=== PATIENT | female | born 1950 | race Caucasian/White ===

== ENCOUNTER 2018-03-07 15:15 | Emergency (ER) | payer MEDICARE ==
[~2018-03-07] VITALS: Ht 149.9 cm; Wt 53.6 kg
[~2018-03-07 15:15] MED LIST: AMIO200T40 PO; ASPI-41 PO; ATOR10TA PO; Hydrocodone Bit/Acetaminophen PO; Metoprolol Tartrate PO
[2018-03-07 15:42] VITALS: BP 130/55
[2018-03-07] MEDS ORDERED: INDO25CA18 PO (15:47)
[2018-03-07] MEDS ORDERED: METH4TAB3 PO (15:47)
== END 2018-03-07 15:58 | disposition home or self-care (01) ==
LOC: ER 15:16
DX: M1A.0721 Idiopathic chronic gout, left ankle and foot, with tophus (tophi) (principal); M1A.0711 Idiopathic chronic gout, right ankle and foot, with tophus (tophi); Z88.0 Allergy status to penicillin; Z88.6 Allergy status to analgesic agent; Z91.018 Allergy to other foods; Z79.899 Other long term (current) drug therapy
CPT/HCPCS: 99283

== ENCOUNTER 2018-03-22 11:58 | Emergency (ER) | payer MEDICARE, OTHER ==
[~2018-03-22] VITALS: Ht 149.9 cm; Wt 53.6 kg
[~2018-03-22 11:58] MED LIST changes: +INDO25CA18 PO; +METH4TAB3 PO
[2018-03-22 12:04] VITALS: BP 158/40
--- NOTE | 2018-03-22 13:03 | NUR ---
RELIEVING RN FOR LUNCH, PT IS RESTING QUIETLY ON GURSILVIA, DR VENTURA AT BEDSIDE TO PETEAL PT, PT REFERRED TO ER FROM [facility] TO R/O LEUKEMIA, PT ALSO C/O BILATERAL FOOT PAIN X1 YEAR "I HAVE GOUT", DR VENTURA GAVE VERBAL ORDER FOR PT TO EAT AFTER RECEIVING MED, PT IS GOING TO FOLLOW UP AT [facility] TOMORROW PER DR VENTURA
[2018-03-22] MEDS ORDERED: ondansetron 4mg rapidly disintigrating tab PO ONE (13:10)
== END 2018-03-22 13:24 | disposition home or self-care (01) ==
LOC: ER 12:00
DX: M10.9 Gout, unspecified (principal); D72.829 Elevated white blood cell count, unspecified; D75.81 Myelofibrosis; I10 Essential (primary) hypertension; F17.200 Nicotine dependence, unspecified, uncomplicated; Z86.19 Personal history of other infectious and parasitic diseases; Z88.0 Allergy status to penicillin; Z88.5 Allergy status to narcotic agent; Z91.018 Allergy to other foods; Z79.82 Long term (current) use of aspirin
CPT/HCPCS: 99282